=== PATIENT | female | born 1965 | race Caucasian/White ===

== ENCOUNTER → 2022-03-16 10:36 | Outpatient (BNVA) | payer MEDICAID, SELFPAY | PROVIDERS: PCP Family Medicine; Referring Provider Family Medicine; Visit Provider Anesthesiology Pain Medicine | DX: M54.16 Radiculopathy, lumbar region (principal); M54.12 Radiculopathy, cervical region; M47.816 Spondylosis without myelopathy or radiculopathy, lumbar region | CPT/HCPCS: 72040; 99204 ==

== ENCOUNTER 2022-03-22 06:00 | Outpatient (RCR) | payer MEDICAID, SELFPAY | END 2022-04-05 23:59 | disposition home or self-care (01) | LOC: WPT 06:00 | PROVIDERS: PCP Family Medicine; Visit Provider Family Medicine | DX: M54.50 Low back pain, unspecified (principal); G89.29 Other chronic pain | CPT/HCPCS: 97110; 97161; 97530 ==

== ENCOUNTER 2022-04-06 06:00 | Outpatient (RCR) | payer MEDICAID, SELFPAY | END 2022-05-06 23:59 | disposition home or self-care (01) | LOC: WPT 06:00 | PROVIDERS: PCP Family Medicine; Visit Provider Family Medicine | DX: M54.50 Low back pain, unspecified (principal); G89.29 Other chronic pain | CPT/HCPCS: 97110; 97530 ==

== ENCOUNTER 2022-04-15 14:44 | Outpatient (CLI) | payer MEDICAID, SELFPAY ==
--- NOTE | 2022-04-15 15:00 | MM_ITS ---
WS: [id number] BILATERAL 3D TOMOSYNTHESIS DIGITAL SCREENING MAMMOGRAPHY WITH CAD CLINICAL INFORMATION: SCREENING HISTORY: Screening mammogram. No current complaints. COMPARISON: 2020 TECHNIQUE: Bilateral CC and MLO views. FINDINGS: Scattered fibroglandular densities bilaterally. No suspicious focal mass, asymmetry, calcifications, or architectural distortion. No evidence of malignancy. MM/[place] [id number] IMPRESSION: BI-RADS: 1-Negative FOLLOW UP: 1 Year Follow-up Recommend return to annual screening mammography.
== END 2022-04-15 14:45 | disposition home or self-care (01) ==
PROVIDERS: PCP Family Medicine; Visit Provider Family Medicine
DX: Z12.31 Encounter for screening mammogram for malignant neoplasm of breast (principal)
CPT/HCPCS: 77063; 77067

== ENCOUNTER 2022-04-19 08:36 | Outpatient (CLI) | payer MEDICAID, SELFPAY ==
--- NOTE | 2022-04-19 08:45 | MR_ITS ---
WS: [id number] MRI LUMBAR SPINE NONCONTRAST TECHNIQUE: Sagittal T1, T2 and STIR imaging. Axial T1 and T2 imaging. CLINICAL INFORMATION: M54.16 - Radiculopathy, lumbar region COMPARISON: None. FINDINGS: Mild lumbar curve. No acute compression. Grade 1 anterolisthesis L4 on L5 measuring 5 mm. L1-L2: Mild facet arthropathy. Spinal canal and foramen are patent. L2-L3: No significant disc bulging. Mild facet arthropathy. Spinal canal and foramen are patent. L3-L4: Mild annular bulging. Mild facet arthropathy. Spinal canal and foramen are patent. L4-L5: Grade 1 anterolisthesis results in moderate central canal stenosis. Impingement traversing L5 nerve roots bilaterally. Moderate facet arthropathy with facet effusions. Mild bilateral foraminal na rrowing. L5-S1: No significant disc bulging. Mild LEFT and no significant RIGHT foraminal narrowing. Mild face t arthropathy with small RIGHT greater than LEFT facet effusions. Visualized pelvic bony structures: Normal. Paravertebral soft tissues: Normal. MR/MR lumbar spine wo con* [id number] IMPRESSION: 1. Grade 1 anterolisthesis L4 on L5 measuring 5 mm. Mild LEFT greater than RIG HT L4-L5 foraminal narrowing. 2. Moderate central canal stenosis L4-L5 with impingement traversing L5 nerve roots bilaterally. 3. Moderate facet arthropathy L4-L5 with small facet effusions compatible with synovitis likely due to instability 4. Mild facet arthropathy L5-S1 with small RIGHT greater than LEFT facet effus ions likely degenerative.
== END 2022-04-19 08:37 | disposition home or self-care (01) ==
LOC: RAD 08:38
PROVIDERS: PCP Family Medicine; Visit Provider Anesthesiology Pain Medicine
DX: M54.16 Radiculopathy, lumbar region (principal); M48.061 Spinal stenosis, lumbar region without neurogenic claudication; M47.816 Spondylosis without myelopathy or radiculopathy, lumbar region; M47.817 Spondylosis without myelopathy or radiculopathy, lumbosacral region
CPT/HCPCS: 72148

== ENCOUNTER 2022-05-07 06:00 | Outpatient (RCR) | payer MEDICAID, SELFPAY | END 2022-06-05 23:59 | disposition home or self-care (01) | LOC: WPT 06:00 | PROVIDERS: PCP Family Medicine; Visit Provider Family Medicine | DX: M54.50 Low back pain, unspecified (principal); G89.29 Other chronic pain | CPT/HCPCS: 97110; 97530 ==

== ENCOUNTER → 2022-05-16 10:15 | Outpatient (BNVA) | payer MEDICAID, SELFPAY | PROVIDERS: PCP Family Medicine; Visit Provider Anesthesiology Pain Medicine | DX: M47.816 Spondylosis without myelopathy or radiculopathy, lumbar region (principal); M54.12 Radiculopathy, cervical region | CPT/HCPCS: 99214 ==

== ENCOUNTER → 2022-05-31 13:10 | Outpatient (BNVA) | payer MEDICAID, SELFPAY | PROVIDERS: PCP Family Medicine; Visit Provider Anesthesiology Pain Medicine | DX: M47.816 Spondylosis without myelopathy or radiculopathy, lumbar region (principal) | CPT/HCPCS: 64493; 64494; 64495; J3490 ==

== ENCOUNTER → 2022-06-14 13:13 | Outpatient (BNVA) | payer MEDICAID, SELFPAY | PROVIDERS: PCP Family Medicine; Visit Provider Anesthesiology Pain Medicine | DX: M47.816 Spondylosis without myelopathy or radiculopathy, lumbar region (principal) | CPT/HCPCS: 64493; 64494; 64495; J3490 ==

== ENCOUNTER → 2022-07-05 09:04 | Outpatient (BNVA) | payer MEDICAID, SELFPAY | PROVIDERS: PCP Family Medicine; Visit Provider Anesthesiology Pain Medicine | DX: M47.816 Spondylosis without myelopathy or radiculopathy, lumbar region (principal); M54.12 Radiculopathy, cervical region | CPT/HCPCS: 99214 ==

== ENCOUNTER → 2022-07-20 13:59 | Outpatient (BNVA) | payer MEDICAID, SELFPAY | PROVIDERS: PCP Family Medicine; Visit Provider Anesthesiology Pain Medicine | DX: M47.816 Spondylosis without myelopathy or radiculopathy, lumbar region (principal) | CPT/HCPCS: 64635; 64636; J1030 ==

== ENCOUNTER → 2022-08-03 12:36 | Outpatient (BNVA) | payer MEDICAID, SELFPAY | PROVIDERS: PCP Family Medicine; Visit Provider Anesthesiology Pain Medicine | DX: M47.816 Spondylosis without myelopathy or radiculopathy, lumbar region (principal) | CPT/HCPCS: 64635; 64636; J1030 ==

== ENCOUNTER → 2022-08-18 10:12 | Outpatient (BNVA) | payer MEDICAID, SELFPAY | PROVIDERS: PCP Family Medicine; Visit Provider Anesthesiology Pain Medicine | DX: M47.816 Spondylosis without myelopathy or radiculopathy, lumbar region (principal); M54.12 Radiculopathy, cervical region | CPT/HCPCS: 99213 ==

== ENCOUNTER → 2022-11-15 13:53 | Outpatient (BNVA) | payer MEDICAID, SELFPAY | PROVIDERS: PCP Family Medicine; Visit Provider Anesthesiology Pain Medicine | DX: M54.12 Radiculopathy, cervical region (principal); M47.816 Spondylosis without myelopathy or radiculopathy, lumbar region; M43.16 Spondylolisthesis, lumbar region; M48.061 Spinal stenosis, lumbar region without neurogenic claudication | CPT/HCPCS: 72040; 99214 ==

== ENCOUNTER → 2023-01-25 08:38 | Outpatient (BNVA) | payer MEDICAID, SELFPAY | PROVIDERS: PCP Family Medicine; Visit Provider Anesthesiology Pain Medicine | DX: M54.12 Radiculopathy, cervical region (principal); M47.816 Spondylosis without myelopathy or radiculopathy, lumbar region; M43.16 Spondylolisthesis, lumbar region | CPT/HCPCS: 99214 ==

== ENCOUNTER → 2023-04-04 10:20 | Outpatient (BNVA) | payer MEDICAID, SELFPAY | PROVIDERS: PCP Family Medicine; Visit Provider Anesthesiology Pain Medicine | DX: M47.816 Spondylosis without myelopathy or radiculopathy, lumbar region; M54.12 Radiculopathy, cervical region; M48.061 Spinal stenosis, lumbar region without neurogenic claudication; M43.16 Spondylolisthesis, lumbar region | CPT/HCPCS: 99214 ==

== ENCOUNTER → 2024-09-17 13:28 | Outpatient (BNVA) | payer MEDICAID, SELFPAY | PROVIDERS: PCP Family Medicine; Visit Provider Dermatology | DX: K13.0 Diseases of lips (principal); L85.3 Xerosis cutis; K14.0 Glossitis | CPT/HCPCS: 17004; 99204 ==

== ENCOUNTER 2024-12-24 12:10 | Outpatient (CLI) | payer MEDICAID, SELFPAY ==
[2024-12-24 14:48] LABS: Alanine Aminotransferase 12 U/L (0-33); Albumin Level 3.7 g/dL (3.5-5.2); Alkaline Phosphatase 91 U/L (35-105); Anion Gap 14.0 (5-19); Aspartate Amino Transferase 17 U/L (0-32); Blood Urea Nitrogen 26 mg/dL (8-23); Calcium 8.5 mg/dL (8.5-10.5); Carbon Dioxide 23 mmol/L (22-29); Chloride 109 mmol/L (98-107); Globulin 2.7 g/dL (1.3-4.6); Glucose 76 mg/dL (65-115); Osmolality Calculated 298 mOsm/kg (285-295); Potassium 4.0 mmol/L (3.5-5.1); Sodium 142 mmol/L (136-145); Total Protein 6.4 g/dL (6.6-8.7)
[2024-12-25 13:20] LABS: COMPLEMENT, TOTAL (CH50) 41 U/mL (31-60)
== END 2024-12-24 12:11 | disposition home or self-care (01) ==
PROVIDERS: PCP Family Medicine; Visit Provider Dermatology
DX: M34.83 Systemic sclerosis with polyneuropathy (principal)
CPT/HCPCS: 36415; 80053; 86160; 86162; 86235; 86255; 86376